=== PATIENT | male | born 1980 | race Caucasian/White ===

== ENCOUNTER 2022-09-29 00:46 | Emergency (ER) | payer SELFPAY ==
[2022-09-29] MEDS ORDERED: fentaNYL 100 MCG/2 ML SDV IVPUSH ONE ×3 (01:37→05:50)
[2022-09-29] MEDS ORDERED: Ondansetron 4 MG/2 ML SDV IVPUSH ONE (01:37)
[2022-09-29] MEDS ORDERED: Lactated Ringers 1,000 ML IV SCH (01:45)
[2022-09-29] MEDS ORDERED: Iopamidol 612 MG/ML 50 ML SDV IVPUSH ONE (02:52)
[2022-09-29] MEDS ORDERED: Iopamidol 612 MG/ML 100 ML Bottle IVPUSH ONE (02:52)
[2022-09-29] MEDS ORDERED: Sodium Chloride 0.9% 10 ML Syringe FLUSH ONE (02:52)
[2022-09-29] MEDS ORDERED: Sodium Chloride 0.9% 100 ML IV SCH (03:00)
[2022-09-29] MEDS ORDERED: HYDROmorphone 1 MG/ML Syringe IVPUSH ONE (07:51)
[2022-09-29] MEDS ORDERED: Dexamethasone 4 MG/ML SDV IVPUSH ONE (07:51)
== END 2022-09-29 12:50 | disposition home or self-care (01) ==
LOC: EDBD 00:46 → JD.ED 00:46
DX: M54.50 Low back pain, unspecified (principal); M54.2 Cervicalgia; Z88.5 Allergy status to narcotic agent; Z88.8 Allergy status to other drugs, medicaments and biological substances; Z87.891 Personal history of nicotine dependence
CPT/HCPCS: 36415; 71260; 71260-26; 72125; 72125-26; 72128; 72128-26; 72131; 72131-26; 72141; 72141-26; 73552-26-LT; 73552-LT; 74177; 74177-26; 80053; 80306; 80307; 81003; 85025; 96361; 96374; 96375; 96376; 99284-25; J1100; J1170; J2405; J3010; J3490; J7120; Q9967